=== PATIENT | male | born 1990 | race Caucasian/White ===

== ENCOUNTER 2017-08-30 17:51 | Emergency (ER) | payer BC ==
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
[2017-08-30 18:32] VITALS: BP 138/100; PULSE 86; TEMP 98.6; BMI 34.0
== END 2017-08-30 19:26 | disposition home or self-care (01) ==
LOC: FER 17:51
DX: S89.92XA Unspecified injury of left lower leg, initial encounter (principal); V87.8XXA Person injured in other specified noncollision transport accidents involving motor vehicle (traffic), initial encounter; Y93.55 Activity, bike riding; Y92.410 Unspecified street and highway as the place of occurrence of the external cause
CPT/HCPCS: 73562-TC-LT-FY; 99281-25